=== PATIENT | female | born 1980 | race Caucasian/White ===

== ENCOUNTER 2016-07-07 11:20 | Inpatient (IN) | payer OTHER ==
[~2016-07-07] VITALS: Ht 165.1 cm; Wt 117.9 kg
[2016-07-07] MEDS ORDERED: Labetalol 5 mg/mL 4 mL Inj IVPUSH ONE (12:00)
[2016-07-07] MEDS ORDERED: Labetalol 5 mg/mL 4 mL Inj IV PRN (12:00)
[2016-07-07] MEDS ORDERED: hydrALAZINE 20 mg/mL Inj IVPUSH PRN (12:00)
[2016-07-07] MEDS ORDERED: Lactated Ringer's 1,000 ML IV PRN (12:06)
[2016-07-07] MEDS ORDERED: Carboprost 250 mCg/mL Inj IM PRN (12:10)
[2016-07-07] MEDS ORDERED: Magnesium Sulf 4 Gm/100 mL H2O 4 GM in IV Premix 1 EACH IV ONE (12:10)
[2016-07-07] MEDS ORDERED: Oxytocin 30 Units/500 mL LR 30 UNITS in IV Premix 1 EACH IV PRN ×2 (12:10→14:00)
[2016-07-07] MEDS ORDERED: Sodium Chloride LOK Flush 10 mL Syringe IVFLUSH PRN (12:10)
[2016-07-07] MEDS ORDERED: Oxytocin 10 Unit/mL Inj IM PRN (12:10)
[2016-07-07] MEDS ORDERED: Hemorrhage Kit, Post Partum XX ONE (12:10)
[2016-07-07] MEDS ORDERED: Methylergonovine 0.2 mg/mL Inj IM PRN (12:10)
[2016-07-07 12:33] LABS: Mean Corpuscular Hemoglobin 29.6 pg (27.0-35.0); Mean Corpuscular Volume 88.3 fL (81-100)
[2016-07-07] MEDS ORDERED: PREN-12 PO (12:39)
[2016-07-07] MEDS ORDERED: Calcium GLUCOnate 10% (Gm) 1 Gm/10 mL Inj ONE (13:07)
[2016-07-07] MEDS: Magnesium Sulf 20 Gm/500mL H2O 20 GM in IV Premix 1 EACH IV SCH ×2 (13:20→23:48)
--- NOTE | 2016-07-07 13:33 | PCM.HPOB ---
Subjective Date of Service: Jul 07, 2016 Referring Provider: Admitting Physician: Delfina Mcgregor MD Primary Care Physician: Jesus Arana DO Attending Physician: Delfina Mcgregor MD Chief Complaint Elevated blood pressure at [facility] in [place] directed to present to labor and delivery History of Present History of Present Illness Patient is a 36 year old female at 40 weeks 2 days with EDC of 07/05/16 who presents for induction of labor due to elevated blood pressures seen at [facility] in [place] today. Patient notes clear vaginal discharge, lightheadedness, and feeling woozy. She confirms continued movement. Denies headache or vision changes. Patient desires TOLAC. complicated by advanced maternal age, pre-eclampsia with previous diagnosed at 32 weeks and placed on BP meds and magnesium, prior LTCS secondary to failure to progress at 36 weeks 4 days, and history of HPV s/p LEEP and colposcopy. Currently patient is not nicolasa, no vaginal bleeding, clear leakage of fluid, no spontaneous rupture of membranes. heart rate 140 at baseline with category 1 tracing. Patient able to feel movement. Blood pressure initially 190/110 on a 2 initial dose of labetalol 20 mg decreasing to 168. Additional medication to be administered per emergent hypertension protocol. labs include blood type A positive, antibody screen negative, varicella immune, rubella immune, RPR nonreactive, hepatitis B surface antigen negative, HIV negative, GBS negative, and 1 hr GTT normal. OB History: (3), Para (2) Obstetrical Complications: Pre-eclampsia, Other (advanced maternal age) Past Medical History Obstetrical History: Preeclampsia with previous diagnosed at 32 weeks and placed on BP meds and magnesium First was Second was LTCS secondary to failure to progress at 36 weeks 4 days Gynecologic History: History of HPV status post LEEP and colposcopy Medical History: None Surgical History: section Hx Tobacco Use: No Smoking Status: Never Smoker Hx Alcohol Use: No Hx Substance Use: No Past Family History Living Arrangement: with Family Genetic Screening/Counseling Comment: declined Review of Systems Constitutional: Y: Dizziness Eyes: Denies: Blurred Vision, Conjunctive Inflammation, Double Vision, Eyelid Inflammation, Other, Pain, Redness, Vision Changes Cardiovascular: Denies: Chest Pain, Edema, Orthopnea, Other, Palpitations, SOB while laying flat Respiratory: Denies: Cough, Cough with bloody sputum, Other, Pleuritic Chest Pain, Pleuritic Chest Pain, SOB with Exertion, Sputum, Wheezing Genitourinary: Denies: Anuria, Change in Frequency, Dysuria, Hematuria, Incontinence, Nocturia, Other, Retention Musculoskeletal: Denies: Back Pain, Deformity, Limitation of Function, Neck Pain, Other, Redness, Shoulder Pain, Swelling Skin/Breasts: Denies: Bruising, Discharge, Dry or Flakiness, Jaundice, Lesions , Masses, Mastalgia, Other, Rash, Scars, Ulcers Skin: Denies: Bruising, Dry or Flakiness, Jaundice, Lesions, Other, Rash, Scars , Ulcers Neurological: Denies: Change in Speech, Confusion, Dizziness, Incoordination, Numbness, Other, Seizures, Somnolence, Tremors, Weakness Psychologic: Reports: Nervousness Hematologic: Denies: Abnormal bleeding, Adenopathy, Bruising, Other Medications Home medications vitamins Allergy Coded Allergies: amoxicillin (Verified Allergy, Severe, VERTIGO,, 07/07/16) Exam Vital Signs Afebrile, blood pressure 190/110, pulse 66 Exam heart rate 140s with good [id number] variability, category 1 tracing Constitutional: Well-developed, Well-nourished HEENT: Atraumatic, PERRLA, EOMI Lungs: Clear to Auscultation, Normal Air Movement Heart: Regular Rate/Rhythm, Normal S1, Normal S2, No Murmurs/Rubs/Gallops Abdomen: Gravid, Normal bowel sounds, Soft Extremities: Pulses Palpable x4, Edema (trace lower extremity) Neurological/Psychiatric: Alert, Oriented X3, Mild Distress Neuro: Grossly Neurologically Intact Labs/Diagnostics Lab/Diagnostic Information CBC Test 07/07/16 12:15 White Blood Count 11.6th/mm3 (3.8-10.1) Red Blood Count 4.77mil/mm3 (3.90-5.20) Hemoglobin 14.1g/dL (12.0-15.6) Hematocrit 42.1% (35.0-46.0) Mean Corpuscular Volume 88.3fL (81-100) Mean Corpuscular Hemoglobin 29.6pg (27.0-35.0) Mean Corpuscular Hemoglobin Concent 33.5% (32.0-37.0) Red Cell Distribution Width 13.2% (12.3-15.4) Platelet Count 244bil/L (150-400) Hematology Comments CMP Test 07/07/16 12:15 Blood Urea Nitrogen 7mg/dL Creatinine 0.65mg/dL Uric Acid 5.4mg/dL Aspartate Amino Transf (AST/SGOT) 17U/L Alanine Aminotransferase (ALT/SGPT) 16U/L Maternal Blood Type: A Hx Rho(D) Immune Globulin: No Antibody Screen: negative Group B Strep Results: Negative Previous Infant with GBS: No Rubella: Immune OB Intrapartum Assessment/Plan Assessment 1. Term at 40 weeks 2 days with EDC of 07/05/16 2. Preeclampsia 3. Prior LTCS secondary to failure to progress at 36 weeks 4 days 4. History of HPV status post LEEP and colposcopy Intrapartum plan 1. Emergency hypertension protocol initially with labetalol but now switched to hydralazine due to a nationwide shortage of labetalol. 2. Magnesium 4 g loading dose followed by 2 g/h 3. If blood pressure and patient stabilizes patient will be induced and a trial labor attempted. 4. Extensive conversation about risks of elevated blood pressure including stroke, seizure, and need for section had with patient and . Attending Statement The patient was seen and examined together and I agree with the note above. Admitted in hypertensive crisis, emergent hypertensive therapy started and magnesium for severe pre-eclampsia. Induction discussed with patient and given her lebron score, Cervical ripening balloon will be placed. Discussed implications of magnesium therapy with patient and induction plans. Will monitor magnesium closely, continue strict I/O and limit IVF given. Close monitoring for magnesium toxicity with magnesium checks. ANDREA GUERRA DO Jul 07, 2016 12:17 Delfina Mcgregor MD Jul 13, 2016 07:56
[2016-07-07] MEDS: Lactated Ringer's 1,000 ML IV SCH (13:57)
[2016-07-07] MEDS ORDERED: NIFEdipine 10 mg Capsule PO ONE (15:10)
--- NOTE | 2016-07-07 17:33 | PCM.PNOBIP ---
Subjective Date of Service Jul 07, 2016 Subjective Doing well on magnesium, she has a mild WALKER currently. Strongly desires Vera score 6 Group B Strep Results: Negative Rubella: Immune Blood Type: A Labs Laboratory Tests 07/07/16 12:15: White Blood Count 11.6, Red Blood Count 4.77, Hemoglobin 14.1, Hematocrit 42.1, Mean Corpuscular Volume 88.3, Mean Corpuscular Hemoglobin 29.6, Mean Corpuscular Hemoglobin Concent 33.5, Red Cell Distribution Width 13.2, Platelet Count 244, Hematology Comments Exam Vital Signs Vital Signs Contraction frequency in minutes: MVUs: Heart Tracings Heart Tones Baseline 140 bpm/moderate variability/15x15 Tocometry/IUPC Contraction frequency in minutes: MVUs: Sterile Vaginal Exam Cervical Dilation: 2 cms Cervical Effacement: 60 % Station: -3 Exam Lungs: Clear to Auscultation, Normal Air Movement Heart: Regular Rate/Rhythm, Normal S1, Normal S2, No Murmurs/Rubs/Gallops General: Alert, Oriented X3, Mild Distress OB Intrapartum Assessment/Plan Problems: (1) Plan: Kamara balloon placed and inflated with 50cc of saline. Will start pitocin at 2 mu and hold until balloon falls out, then increase per protocol. BP stable at this time, continue to monitor, will treat severe range BP as needed, continue magnesium, strict I/O with mag on board. Status: Acute ICD Code: Z33.1 Intrapartum plan: Continue expected management Delfina Mcgregor MD Jul 07, 2016 17:33
[2016-07-07] MEDS ORDERED: fentaNYL 2 mCg/mL-Bupiv 0.125% 100 ML EPIDURAL SCH (23:35)
[2016-07-07] MEDS ORDERED: Ondansetron 2 mg/mL 2 mL Inj IVPUSH PRN (23:35)
[2016-07-07] MEDS ORDERED: EPHEDrine Sulfate 50 mg/mL Inj IVPUSH PRN (23:35)
[2016-07-07] MEDS ORDERED: Atropine 1 mg/10 mL (Code) Syringe IVPUSH PRN (23:35)
[2016-07-07] MEDS ORDERED: Lactated Ringer's 500 ML IV ONE (23:35)
[2016-07-07] MEDS ORDERED: fentaNYL-PF 50 mCg/mL 2 mL Inj ONE (23:36)
--- NOTE | 2016-07-07 23:38 | PCM.HPANE ---
Patient Data Surgeon Admitting Provider:Delfina Mcgregor MD Attending Provider:Delfina Mcgregor MD Primary Care Physician:Jesus Arana DO Other Provider:Trevor Witt Anesthesia Reason for Visit Term Labor Check Ht/WT & BMI Body Mass Index Allergies Coded Allergies: amoxicillin (Verified Allergy, Severe, VERTIGO,, 07/07/16) Diabetes History Hx Diabetes?: No Medications Hypertension Medication: No Home Meds Incl Beta Chris: No Reported Medications Vit W-Ca,Fe,FA(<1 mg) ( Formula)1 Each Tablet1 Each PO DAILY 07/07/16 History Hx of Heart Problems?: No Cardiovascular History: Positive for:: Hypertension (now with severe pre- eclampsia) Hx of Respiratory Problem?: No Hx Alcohol Use: NoHx Substance Use: No Smoking Status: Never Smoker Stop/Bang Risk Assessment Category Category 1A: Patient has history of documented sleep apnea, and HAS NOT received any narcotic, sedative or anesthesia administration during this stay. Category 1B: Patient has history of documented sleep apnea, and HAS received any narcotic , sedative or anesthesia administration during this stay Category 2: Patient has SUSPECTED Obstructive Sleep Apnea, and HAS received any narcotic , sedative or anesthesia administration during this stay. Category 3: Patient has SUSPECTED Obstructive Sleep Apnea and HAS NOT received narcotic, sedative or anesthesia administration during this stay. Category 4: Outpatient in Procedural Areas with known sleep apnea or who screen positive for High Risk via the STOP/BANG questionnaire. Exam Exam General Appearance: Alert, Oriented X3, Cooperative, Moderate Distress (with contractions) HEENT/AIRWAY: MP 2 Lungs: Normal Air Movement Heart: Exam Unremarkable Meds/Labs/Diagnostics Admission Meds Current Medications Labetalol HCl 20 mg 20 mg ONCE ONCE IVPUSH Last administered on 07/07/16 12: 31; Start 07/07/16 at 12:00; Stop 07/07/16 at 12:02; Status DC Magnesium Sulfate/ Premix (Magnesium Sulf 4 Gm/100 mL H2O/ IV Premix) 100 ml @ 200 mls/hr ONCE ONCE IV Last administered on 07/07/16 13:20; Start 07/07/16 at 12:10; Stop 07/07/16 at 12:39; Status DC Nifedipine (Procardia) 30 mg OT ONCE PO Last administered on 07/07/16 16:16; Start 07/07/16 at 15:10; Stop 07/07/16 at 15:11; Status DC Labs Test 07/07/16 12:15 White Blood Count 11.6th/mm3 (3.8-10.1) Red Blood Count 4.77mil/mm3 (3.90-5.20) Hemoglobin 14.1g/dL (12.0-15.6) Hematocrit 42.1% (35.0-46.0) Mean Corpuscular Volume 88.3fL (81-100) Mean Corpuscular Hemoglobin 29.6pg (27.0-35.0) Mean Corpuscular Hemoglobin Concent 33.5% (32.0-37.0) Red Cell Distribution Width 13.2% (12.3-15.4) Platelet Count 244bil/L (150-400) Hematology Comments Urine Random Creatinine 40mg/dL (16-392) Urine Random Total Protein 5mg/dL (0-15) Urine Protein/Creatinine Ratio 0.13 Blood Urea Nitrogen 7mg/dL (6-20) Creatinine 0.65mg/dL (0.57-1.00) Uric Acid 5.4mg/dL (2.6-7.2) Aspartate Amino Transf (AST/SGOT) 17U/L (0-50) Alanine Aminotransferase (ALT/SGPT) 16U/L (0-32) Plan Impression Patient chart reviewed, patient interviewed and anesthestic plan with risks, benefits, and alternatives discussed, and informed consent obtained. ASA Physical Status: ASA3 Severe Disease (severe pre-eclampsi, morbid obesity) Anesthetic Plan: Epidural Bene/Risks/Altern/Consents: Yes HP Complete Prior to Induction: Yes Dre Kelly MD Jul 07, 2016 23:38
[2016-07-08] MEDS: Sodium Chloride LOK Flush 10 mL Syringe IVFLUSH SCH ×3 (00:30→16:30)
[2016-07-08] MEDS: Lactated Ringer's 1,000 ML IV SCH ×9 (03:33→23:35)
[2016-07-08] MEDS ORDERED: Hemorrhage Kit, Post Partum XX ONE (03:35)
[2016-07-08] MEDS ORDERED: Witch Hazel-Glycerin Pads TOPICAL PRN (03:35)
[2016-07-08] MEDS ORDERED: Oxytocin 10 Unit/mL Inj IM PRN (03:35)
[2016-07-08] MEDS ORDERED: Carboprost 250 mCg/mL Inj IM PRN (03:35)
[2016-07-08] MEDS ORDERED: Oxytocin 30 Units/500 mL LR 30 UNITS in IV Premix 1 EACH IV PRN (03:35)
[2016-07-08] MEDS ORDERED: Benzocaine (Dermoplast) 20% 60 Gm Spray TOPICAL PRN (03:35)
[2016-07-08] MEDS ORDERED: LANOlin HPA 7 Gm Ointment TOPICAL PRN (03:35)
[2016-07-08] MEDS ORDERED: Methylergonovine 0.2 mg/mL Inj IM PRN (03:35)
[2016-07-08] MEDS ORDERED: oxyCODONE-Acetamin 5-325 mg Tablet PO PRN (03:35)
[2016-07-08 06:54] LABS: Mean Corpuscular Hemoglobin 29.3 pg (27.0-35.0); Mean Corpuscular Volume 87.6 fL (81-100)
--- NOTE | 2016-07-08 06:57 | PCM.ANEP2 ---
Post Anesthesia Evaluation ASA/CMS Post Anesthesia VS in Patient's Normal Range?: Yes Resp Stable; Airway Patent?: Yes CV Function & Hydration Stable: Yes Mental Status Recovered?: Yes Pain control Satisfactory?: Yes N/V Control Satisfactory?: Yes Dre Kelly MD Jul 08, 2016 06:57
--- NOTE | 2016-07-08 06:57 | PCM.ANEP1 ---
Post Anesthesia Phase 1 PACU Phase 1 Assessment Date of Service: Jul 07, 2016 Vital Signs see nursing notes Anesthetic Administered: Epidural Level of Alertness: Awake, talking EAST's with Equal Strength: Yes Pain: No Nausea or Vomiting: No Oxygen Delivery: Room Air Lungs: Normal Air Movement Dermatome Level: Full Sensation Dre Kelly MD Jul 08, 2016 06:57
[2016-07-08 07:39] LABS: Magnesium 5.1 mg/dL (1.6-2.6)
[2016-07-08] MEDS: Ascorbic Acid 500 mg Tablet PO SCH ×2 (08:52→19:37)
[2016-07-08] MEDS: Magnesium Sulf 20 Gm/500mL H2O 20 GM in IV Premix 1 EACH IV SCH ×2 (09:23→19:41)
--- NOTE | 2016-07-08 21:25 | PROG NOTE ---
[address] [address] PROGRESS NOTE PATIENT: YAIMA HAY : 1980 MR#: [id number] ADMIT: 07/07/2016 JOB ID: [id number] DATE: 07/08/2016 This is a 26-year-old female. She is para 2, status post after induction of labor for gestational hypertension with severe features. Patient has been on magnesium sulfate and she also got IV medication to control her blood pressure before the delivery. Delivery was not complicated. This morning, the patient has no complaints, no headache, no blurry vision. No epigastric pain. No floaters before her eyes. Her abdominal pain is well controlled. Her lochia was not heavy. PHYSICAL EXAMINATION: She is afebrile. Cardiac: RR. No murmur. Pulmonary: Bilaterally clear. Her blood pressure after delivery at 1st was elevated, occasionally severe range. Gradually, her blood pressure trended down to normal range, and this morning, her blood pressure is mostly in 120s to 140s over 60s to 80s. There was one, which went up to 187/103, when patient changing position, but following up, it went down to 140s over 80s. There was another blood pressure at 169/98, but also goes down to 140s over 80s after repeat. Her abdomen is soft. Uterus is well contracted, nontender. Extremities nontender. DTR normal. ASSESSMENT AND PLAN: A 36-year-old female, para 2, status post vaginal after section, gestational hypertension with severe features. 1. Will continue to monitor her blood pressure and symptoms/signs of preeclampsia. 2. We will continue magnesium 24 hours after delivery. That will be around 2 a.m. tomorrow morning. We will continue to watch her blood pressure after that. If in normal range or mildly elevated range, she could potentially be discharged tomorrow. 3. Continue with the routine care. Discussed with the patient the plan. She understood and agreed with it.
[2016-07-09] MEDS: Sodium Chloride LOK Flush 10 mL Syringe IVFLUSH SCH ×3 (00:30→16:30)
--- NOTE | 2016-07-09 00:52 | OP ---
[address] [address] OPERATIVE REPORT PATIENT: YAIMA HAY : 1980 MR#: [id number] ADMIT: 07/07/2016 JOB ID: [id number] DATE OF SURGERY: 07/08/2016 SURGEON: Lewis Acevedo MD. PREOPERATIVE DIAGNOSIS(ES): 1. Intrauterine at 40 weeks and 3 days. 2. Severe preeclampsia. POSTOPERATIVE DIAGNOSIS(ES): 1. Intrauterine at 40 weeks and 3 days. 2. Severe preeclampsia. 3. Status post normal vaginal delivery. OUTCOME: Male , 3147 g, equivalent to 6 pounds 15 ounces. Apgars 6 at one minute and 9 at five minutes. ESTIMATED BLOOD LOSS: 300 mL. COMPLICATIONS: None. PROCEDURE IN DETAIL: This is a 36-year-old female, 3, now para 3, who presented at 40 weeks and 2 days gestation with persistent elevation of blood pressure in the severe range with blood pressure initially of 190/110 that was mitigated with labetalol. Patient was placed on magnesium sulfate and induction of labor was started. Cervix on admission was 2.5, 50%, -2. Kamara balloon was inserted with low dose Pitocin. The Kamara balloon was inserted at 17:26. The balloon came out at 22:14. Pitocin was started and increased 2 x 2 milliunits per protocol. Patient progressed in labor and was found to be dilated to 5 cm, 75%, and -3 at midnight, July 08, 2016. She received epidural and continued to progress in labor to be completely dilated at 2:20 a.m. The patient pushed effectively to deliver via normal vaginal delivery over an intact perineum at 2:36, July 08, 2016. Delivered a male infant in a cephalic presentation with no nuchal cord. Shoulders delivered without difficulty. The infant was placed on the maternal abdomen. Delayed cord clamp was performed after 1 minute. Cord gasses were collected. Cord blood was collected for typing. The placenta was delivered spontaneously intact with three-vessel cord at 2:41. The perineum was examined. A hymenal ring tear was noted that was repaired with [id number] stitch using 3-0 Vicryl with good hemostasis. A small periurethral laceration was hemostatic and no repair was needed. All instrument, needle, and sponge counts were correct x2. Patient and infant recovering in the delivery room. Blood gases results--cord venous: pH 7.242, pCO2 54, pO2 22.5, cHCO3 22.5, C base -5.5. Arterial: pH 7.25, pCO2 59, pO2 17.6, cHCO3 25.3, C base -2.9. Lewis Rivera MD, was present and scrubbed for the entire procedure. JESUS
[2016-07-09] MEDS: Lactated Ringer's 1,000 ML IV SCH ×3 (03:33→11:33)
[2016-07-09] MEDS ORDERED: oxyCODONE 20 mg/mL Oral Concentration PO PRN (06:45)
[2016-07-09] MEDS ORDERED: oxyCODONE 1 mg/mL 5 mL Liquid PO PRN (08:53)
[2016-07-09] MEDS: Ascorbic Acid 500 mg Tablet PO SCH ×2 (16:34→17:02)
--- NOTE | 2016-07-09 18:30 | PCM.PNOBPP ---
Subjective Date of Service Jul 09, 2016 Post : Spontaneous Vaginal Delivery Subjective no headache, no change in vision, no N/V, no epigastric pain, no SOB. Lochia: Normal Pain Management: PO pain meds Gastrointestinal: Good Appetite, No N/V Postop Activity: Ambulating Independently Group B Strep Results: Negative Rubella: Immune Blood Type: A Labs Laboratory Tests 07/07/16 12:15: Hematology Comments 07/08/16 06:47: White Blood Count 17.6, Red Blood Count 4.10, Hemoglobin 12.0, Hematocrit 35.9, Mean Corpuscular Volume 87.6, Mean Corpuscular Hemoglobin 29.3, Mean Corpuscular Hemoglobin Concent 33.4, Red Cell Distribution Width 13.1, Platelet Count 239 Exam Vital Signs Vital Signs BP 189/101 after labetalol 200 mg BP transient drop to 145's/90's then gain to 175's/90's HR 70 RR 16 T 36.5 Vital Signs: VS reviewed, concerns are Exam Abdomen: Fundus firm Lungs: Clear to Auscultation Heart: Regular Rate/Rhythm, Normal S1, Normal S2 General: Alert, Oriented X3 OB Post Assessment/Plan Assessment Patient is a 36 year old female day #1 Sever preeclampsia Magnesium sulfate discontinued 24 hours after delivery BP not well controlled with labetalol 200 mg Q8 hours (hold dose if BP bellow 120/70) Will add Procardia XL 60 mg daily. asymptomatic at this time, if become symptomatic will restart magnesium sulfate. Repeat preeclampsia labs in the morning. Problems: (1) Status: Acute ICD Code: Z33.1 Lewis Acevedo MD Jul 09, 2016 18:27
[2016-07-09 19:29] LABS: Mean Corpuscular Hemoglobin 29.3 pg (27.0-35.0); Mean Corpuscular Volume 91.3 fL (81-100)
[2016-07-09] MEDS: NIFEdipine 30 mg ER24 Tablet PO SCH (19:38)
[2016-07-10 06:16] LABS: Mean Corpuscular Hemoglobin 29.7 pg (27.0-35.0); Mean Corpuscular Volume 91.4 fL (81-100)
[2016-07-10] MEDS ORDERED: LABE200T PO (06:36)
[2016-07-10] MEDS ORDERED: Ascorbic Acid PO (06:36)
[2016-07-10] MEDS ORDERED: NIFE30TA92 PO (06:36)
[2016-07-10] MEDS ORDERED: FERR-74 PO (06:36)
[2016-07-10] MEDS ORDERED: DOCU-41 PO (06:36)
--- NOTE | 2016-07-10 06:51 | PCM.DIOB ---
Obstetrical Disch Instruction Date of Service: Jul 10, 2016 Dates of Hospitalization Date of Hospital Admission Jul 07, 2016 at 12:07 Providers Admitting Physician: Delfina Mcgregor MD Primary Care Physician: Jesus Arana DO Attending Physician: Delfina Mcgregor MD Discharge Diagnosis Discharge Diagnosis 1. day 2 after . 2. Severe Preeclampsia 3. Prior LTCS secondary to failure to progress at 36 weeks 4 days 4. History of HPV status post LEEP and colposcopy Problems: Diet Discharge Diet: No restrictions Activity Discharge Activity-General: Pelvic Rest for 6 weeks, Try not to overdue, Balance rest and activity, Activity as energy allows Dressing and Incisional Care Hygiene: May shower Additional Instructions Discharge Instructions Continue your vitamin. Please take the iron and vitamin c together for your anemia. Do not take more pain medication (Percocet) than is necessary -- less is better. Iron can give you constipation so you have also been given a prescription for docusate to keep you regular. Be sure to follow up in 1 weeks and then again in 6 weeks at [facility]. Pelvic rest for 6 weeks (nothing per vagina including intercourse, tampons) If you have a fever greater than 100.4, please call [facility]. There is always someone distributed generation project manager to talk to. If you have an increase in bleeding, call [facility]. If you have a lot of bleeding suddenly, especially if you have symptoms of dizziness & weakness with it, get emergency help. If you start experiencing extreme depression, especially if you feel that you are a danger to yourself or your family, seek emergency help. You have been through a lot -- BE SURE TO TAKE CARE OF YOURSELF. Throughout your stay your blood pressure has been significantly elevated. It is currently controlled with nifedipine and labetalol. Please closely monitor this at home. If you develop elevated blood pressures above 140/80 please call the office so that we can make the appropriate changes to your medications. Continue to take labetalol 3 times a day and nifedipine once a day as directed below. Close follow-up with women's health is necessary to ensure your safety. You have been sent home with the following prescriptions: - Labetalol 200 mg every 8 hours for blood pressure control. - Nifedipine 60 mg once a day for blood pressure control. - Colace 100 mg twice a day as needed for constipation. - Ferrous sulfate 325 mg every day. - Vitamin C 500 mg every day. Take with iron. - Ibuprofen 800mg take 1 tab every 8 hours as needed for pain Follow Up Plan Follow Up Plan Follow-up with [facility] in 1 and 6 weeks. Follow-up Provider (F9): Delfina Mcgregor MD Follow-up appointment: Weeks (2 and 6) Call your provider for: Fever or Chills, Shortness of breath, Heavy vaginal bleeding, Heavy bleeding, Epigastric pain, Excessive constipation, Vaginal discomfort, Red painful breasts ANDREA GUERRA DO Jul 10, 2016 06:50
--- NOTE | 2016-07-10 07:15 | PCM.DC.OB ---
Obstetrical Discharge Summary Date of Service Jul 10, 2016 Date of hospital admission Jul 07, 2016 at 12:07 Date of Discharge: Jul 10, 2016 Providers Admitting Physician: Delfina Mcgregor MD Primary Care Physician: Jesus Arana DO Attending Physician: Delfina Mcgregor MD Diagnosis at Time of Discharge 1. day 2 after . 2. Severe Preeclampsia 3. Prior LTCS secondary to failure to progress at 36 weeks 4 days 4. History of HPV status post LEEP and colposcopy Problems: Brief History and Physical: Per H&P: Patient is a 36 year old female at 40 weeks 2 days with EDC of 07/05/16 who presents for induction of labor due to elevated blood pressures seen at [facility] in [facility]. Patient notes clear vaginal discharge, lightheadedness, and feeling woozy. She confirms continued movement. Denies headache or vision changes. Patient desires TOLAC. complicated by advanced maternal age, pre-eclampsia with previous diagnosed at 32 weeks and placed on BP meds and magnesium, prior LTCS secondary to failure to progress at 36 weeks 4 days, and history of HPV s/p LEEP and colposcopy. Currently patient is not nicolasa, no vaginal bleeding, clear leakage of fluid, no spontaneous rupture of membranes. heart rate 140 at baseline with category 1 tracing. Patient able to feel movement. Blood pressure initially 190/110 on a 2 initial dose of labetalol 20 mg decreasing to 168. Additional medication to be administered per emergent hypertension protocol. labs include blood type A positive, antibody screen negative, varicella immune, rubella immune, RPR nonreactive, hepatitis B surface antigen negative, HIV negative, GBS negative, and 1 hr GTT normal. Hospital Course: Patient presented with severe preeclampsia. She was started on the emergent hypertensive protocol and given magnesium sulfate. Blood pressure was initially treated with labetalol and then switched to hydralazine as there was a nationwide shortage of labetalol. Labor was induced and patient delivered on 07/08 via . Following delivery patient remained hypertensive and labetalol 200 mg every 8 hours was continued. Nifedipine was added on 07/09 for better management. Patient's blood pressure control greatly improved with the addition of nifedipine. Preeclampsia labs were normal and patient and baby are doing well. Upon discharge blood pressure 136/78 and pulse 66. ([Ascorbic Acid]) 500 MG TABLET 500 MG PO DAILY Prescribed by: ANDREA GUERRA DO Docusate Sodium (Colace) 100 Mg Capsule 100 MG PO BID PRN PRN For Constipation Prescribed by: ANDREA GUERRA DO Ferrous Sulfate (Feosol) 325 Mg Tablet 325 MG PO DAILY Prescribed by: ANDREA GUERRA DO Labetalol (Labetalol) 200 Mg Tablet 200 MG PO Q8 Prescribed by: ANDREA GUERRA DO Nifedipine ER (Adalat CC) 30 Mg Tablet 60 MG PO DAILY Prescribed by: ANDREA GUERRA DO Vit W-Ca,Fe,FA(<1 mg) ( Formula) 1 Each Tablet 1 EACH PO DAILY (Reported) Discharge Medications: - Labetalol 200 mg every 8 hours for blood pressure control. - Nifedipine 60 mg once a day for blood pressure control. - Colace 100 mg twice a day as needed for constipation. - Ferrous sulfate 325 mg every day. - Vitamin C 500 mg every day. Take with iron. - Ibuprofen 800mg take 1 tab every 8 hours as needed for pain Follow-up plan Follow-up with [facility] in 1 and 6 weeks. Discharge Diet: No restrictions Discharge Activity-General: Pelvic Rest for 6 weeks, Try not to overdue, Be up and about, Balance rest and activity, Activity as pain allows, Activity as energy allows Patient instructions Continue your vitamin. Please take the iron and vitamin c together for your anemia. Do not take more pain medication (Percocet) than is necessary -- less is better. Iron can give you constipation so you have also been given a prescription for docusate to keep you regular. Be sure to follow up in 1 weeks and then again in 6 weeks at [facility]. Pelvic rest for 6 weeks (nothing per vagina including intercourse, tampons) If you have a fever greater than 100.4, please call [facility]. There is always someone applications engineer manufacturing to talk to. If you have an increase in bleeding, call [facility]. If you have a lot of bleeding suddenly, especially if you have symptoms of dizziness & weakness with it, get emergency help. If you start experiencing extreme depression, especially if you feel that you are a danger to yourself or your family, seek emergency help. You have been through a lot -- BE SURE TO TAKE CARE OF YOURSELF. Throughout your stay your blood pressure has been significantly elevated. It is currently controlled with nifedipine and labetalol. Please closely monitor this at home. If you develop elevated blood pressures above 140/80 please call the office so that we can make the appropriate changes to your medications. Continue to take labetalol 3 times a day and nifedipine once a day as directed below. Close follow-up with women's health is necessary to ensure your safety. You have been sent home with the following prescriptions: - Labetalol 200 mg every 8 hours for blood pressure control. - Nifedipine 60 mg once a day for blood pressure control. - Colace 100 mg twice a day as needed for constipation. - Ferrous sulfate 325 mg every day. - Vitamin C 500 mg every day. Take with iron. - Ibuprofen 800mg take 1 tab every 8 hours as needed for pain ANDREA GUERRA DO Jul 10, 2016 07:15
[2016-07-10] MEDS: Ascorbic Acid 500 mg Tablet PO SCH (08:22)
[2016-07-10] MEDS: NIFEdipine 30 mg ER24 Tablet PO SCH (08:56)
[2016-07-10 13:08] VITALS: BP 130/74; PULSE 68; RESP 16
--- NOTE | 2016-07-10 14:55 | PATH ---
SURGICAL PATHOLOGY Attending Physician:Lewis Acevedo CASE STATUS: Signed Out PATIENT NAME: YAIMA HYA PID: [id number] : 1980 DATE COLLECTED:07/08/2016 14:26 SPECIMEN: Placenta CLINICAL HISTORY: SEVERE PREECLAMPSIA 1). PLACENTA FINAL DIAGNOSIS: 1.PLACENTA (447 GRAMS): MATURE PLACENTA WITH MULTIPLE SMALL INFARCTS. NEGATIVE FOR CHORIOAMNIONITIS AND FUNISITIS. ICD10 CODE O14.04 GROSS DESCRIPTION: The specimen is received in formalin, labeled with the patient's name and consists of an intact placenta and includes placental disc (447 g, 16.5 x 15.5 x 2.8 cm), umbilical cord (length-5.0 cm, diameter-1.2 x 0.5 cm) and membranes. The membranes are ruptured 5.5 cm from the free edge of the placenta and are semi-translucent. The umbilical cord is attached 5.4 cm from the edge of the placenta and contains 3 vessels. The surface is smooth and shiny with no evidence of meconium. The maternal surface is dark maroon with normal cotyledon formation. The placental disc is spongy and contains multiple yellow orange rubbery fibrous nodules (0.5 x 0.5 x 0.3 cm-1.3 x 1.2 x 1.1 cm) involving less than 10% of this disc. No other nodules, masses, or lesions are identified. Section code: (A) edge of placenta with membranes; (B) umbilical cord; (C-F) placenta, 4 full thickness sections. 07/08/16 JM MICRO DESCRIPTION: See diagnosis. ICD-9 CODES: CPT CODES: 1: 87823 Electronically Signed Out Kev Champion MD [facility] Pathology [facility] [address], [place] [address] Technical component performed at [facility], [facility] [address], [address]
== END 2016-07-10 14:31 | disposition home or self-care (01) | DRG 775 ==
LOC: FBCO 11:20 → FBC 12:07
PROVIDERS: ADMIT Obstetrics & Gynecology; ATTEND Obstetrics & Gynecology
PROC: 0U7C7ZZ Dilation of Cervix, Via Natural or Artificial Opening (ICD-10-PCS; 2016-07-07)
PROC: 3E033VJ Introduction of Other Hormone into Peripheral Vein, Percutaneous Approach (ICD-10-PCS; 2016-07-07)
PROC: 10H07YZ Insertion of Other Device into Products of Conception, Via Natural or Artificial Opening (ICD-10-PCS; 2016-07-07)
PROC: 10E0XZZ Delivery of Products of Conception, External Approach (ICD-10-PCS; principal; 2016-07-08)
PROC: 0HQ9XZZ Repair Perineum Skin, External Approach (ICD-10-PCS; 2016-07-08)
DX: O14.14 Severe pre-eclampsia complicating childbirth (principal); O70.0 First degree perineal laceration during delivery; O34.211 Maternal care for low transverse scar from previous cesarean delivery; Z3A.40 40 weeks gestation of pregnancy; O09.523 Supervision of elderly multigravida, third trimester; Z37.0 Single live birth